=== PATIENT | female | born 1945 | race Caucasian/White ===

== ENCOUNTER 2016-08-27 20:29 | Emergency (ER) | payer MEDICARE, MEDICAID ==
[~2016-08-27] VITALS: Ht 162.6 cm; Wt 54.4 kg
--- NOTE | 2016-08-27 20:49 | NUR ---
PT BB LIBRA FROM [facility] FOR BILATERAL FLANK PAIN. PT AOX3 RR EVEN AND UNLABORED. NO SOB NOTED. NAD NOTED. NO NVD AT THIS TIME.PT NOT DIAPHORETIC. PT GOWNED AND PLACED ON MONITOR WAITING FOR MD SALCEDO.
--- NOTE | 2016-08-27 21:03 | NUR ---
DR. AGUILLON AT BEDSIDE FOR EVAL.
[2016-08-27] MEDS ORDERED: KETOROLAC TROMETHAMINE 15 MG/ML VIAL ONE (21:10)
--- NOTE | 2016-08-27 21:16 | NUR ---
PT TO CT.
[2016-08-27 21:22] LABS: CALCIUM, SERUM 8.5 mg/dL (8.5-10.1); CREATININE 0.8 mg/dL (0.6-1.3); POTASSIUM 3.7 mmol/L (3.5-5.1)
[2016-08-27] MEDS ORDERED: KETOROLAC TROMETHAMINE INJ 30 MG/ML VIAL IV ONE (21:30)
[2016-08-27 21:34] LABS: BILIRUBIN,DIRECT 0.1 mg/dL (0.0-0.2); BILIRUBIN,TOTAL 0.4 mg/dL (0.2-1.0); TOTAL PROTEIN, SERUM 6.6 g/dL (6.4-8.2)
[2016-08-27 21:38] LABS: BASOPHILS # (AUTO) 0.2 /CMM (0.0-0.2); BASOPHILS % (AUTO) 1.9 % (0.0-2.0); EOSINOPHILS # (AUTO) 0.1 /CMM (0.0-0.7); EOSINOPHILS % (AUTO) 1.2 % (0.0-6.0); HEMATOCRIT 39 % (33-45); HEMOGLOBIN 13.3 g/dL (11.5-14.8); LYMPHOCYTES # (AUTO) 1.6 /CMM (0.8-4.8); LYMPHOCYTES % (AUTO) 14.6 % (20.0-44.0); MEAN CORPUSCULAR HEMOGLOBIN 29 PG (26.0-33.0); MEAN CORPUSCULAR HGB CONC 34 g/dl (31.0-36.0); MEAN CORPUSCULAR VOLUME 86 fL (82-100); MONOCYTES % (AUTO) 9.1 % (2.0-12.0); NEUTROPHILS # (AUTO) 7.9 /CMM (1.8-8.9); NEUTROPHILS % (AUTO) 73.2 % (43.0-81.0); PLATELET COUNT (AUTO) 206 /CMM (150-450); RED BLOOD CELL COUNT(AUTO) 4.56 MIL/uL (4.0-5.2); WHITE BLOOD COUNT (AUTO) 10.8 K/uL (4.3-11.0)
--- NOTE | 2016-08-27 21:42 | NUR ---
URINE COLLECTED. CALLED LAB FOR BRAND ENGINEER.
[2016-08-27 22:06] LABS: APPEARANCE,URINE CLEAR (CLEAR); BILIRUBIN,URINE NEGATIVE (NEGATIVE); BLOOD, URINE 2+ Ery/uL (NEGATIVE); COLOR,URINE YELLOW (YELLOW); KETONES,URINE 1+ (NEGATIVE); LEUKOCYTE ESTERASE ,URINE 2+ (NEGATIVE); NITRITE, URINE NEGATIVE (NEGATIVE); PROTEIN,URINE NEGATIVE (NEGATIVE); UGLUCOSE NEGATIVE (NEGATIVE); UROBILINOGEN,URINE 0.2 EU/dL (0.2)
[2016-08-27 22:29] LABS: ADD URINE CULTURE YES; BACTERIA,URINE 1+ /HPF (None Seen); SQUAMOUS EPITHELIAL CELL,UR Moderate /HPF (None Seen); WBC,URINE 40-50 /HPF (0-3)
--- NOTE | 2016-08-27 22:42 | NUR ---
Prince tyson in [facility] - 08/27/16 at 2245 by ANGELA XRAY AT BEDSIDE
--- NOTE | 2016-08-27 22:54 | NUR ---
IV removed. Catheter intact and site benign. Pressure and 4x4 applied to site. No bleeding noted. Patient discharged to home in stable condition. Written and verbal after care instructions given. Patient verbalizes understanding of instruction. ambulatory with a steady gait. daughter to bring pt back to [facility]. risk and benefits explained x3. pt daughter aware and wants to bring pt back to snf. dr. bowen aware.
[2016-08-27 22:56] VITALS: BP 118/64
== END 2016-08-27 22:56 | disposition home or self-care (01) ==
LOC: ER 20:33
DX: M54.5 Low back pain (principal); N39.0 Urinary tract infection, site not specified; K59.00 Constipation, unspecified; E03.9 Hypothyroidism, unspecified; E78.5 Hyperlipidemia, unspecified; F03.90 Unspecified dementia, unspecified severity, without behavioral disturbance, psychotic disturbance, mood disturbance, and anxiety; K21.9 Gastro-esophageal reflux disease without esophagitis; R47.01 Aphasia; F41.9 Anxiety disorder, unspecified; F32.9 Major depressive disorder, single episode, unspecified
CPT/HCPCS: 36415; 72131-TC; 80048-TC; 80076-TC; 81000-TC; 83690-TC; 85025-TC; 87086-TC; A4606; J1885; Z7610

== ENCOUNTER 2017-12-01 17:01 | Inpatient (IN) | payer OTHER, MEDICAID ==
[~2017-12-01] VITALS: Ht 167.6 cm; Wt 71.7 kg
[2017-12-01 17:50] LABS: BASOPHILS # (AUTO) 0.1 /CMM (0.0-0.2); BASOPHILS % (AUTO) 0.8 % (0.0-2.0); EOSINOPHILS % (AUTO) 3.4 % (0.0-6.0); HEMATOCRIT 40 % (33-45); HEMOGLOBIN 13.7 g/dL (11.5-14.8); LYMPHOCYTES # (AUTO) 2.4 /CMM (0.8-4.8); LYMPHOCYTES % (AUTO) 28.7 % (20.0-44.0); MEAN CORPUSCULAR HGB CONC 34 g/dl (31.0-36.0); MEAN CORPUSCULAR VOLUME 86 fL (82-100); MONOCYTES # (AUTO) 0.5 /CMM (0.1-1.30); MONOCYTES % (AUTO) 6.5 % (2.0-12.0); NEUTROPHILS % (AUTO) 60.6 % (43.0-81.0); PLATELET COUNT (AUTO) 278 /CMM (150-450); RDW COEFFICIENT OF VARIATION 12.8 (11.5-15.0); WHITE BLOOD COUNT (AUTO) 8.3 K/uL (4.3-11.0)
--- NOTE | 2017-12-01 17:50 | NUR ---
A/OX4. STABLE CONDITION. VSS. NEG ACUTE DISTRESS. BBPA ON 6940 DTS: MEDICAL CLEARANCE FOR GPS PLACEMENT. SAFETY MEASURES IN PLACE.
[2017-12-01] MEDS ORDERED: OMEP20CA10 PO (17:57)
[2017-12-01] MEDS ORDERED: LEVO88TA5 PO (17:57)
[2017-12-01] MEDS ORDERED: ASPI-1169 PO (17:57)
[2017-12-01] MEDS ORDERED: DEXT1CAP3 PO (17:57)
[2017-12-01] MEDS ORDERED: DULO30CA2 PO (17:57)
[2017-12-01] MEDS ORDERED: POLY15DR40 EACHEYE (17:57)
[2017-12-01 18:00] LABS: CALCIUM, SERUM 9.7 mg/dL (8.5-10.1); CARBON DIOXIDE 26 mmol/L (21-32); CHLORIDE 107 mmol/L (98-107); GLUCOSE 103 mg/dL (74-106); POTASSIUM 3.9 mmol/L (3.5-5.1); SODIUM SERUM 140 mmol/L (136-145); UREA NITROGEN, BLOOD 14 mg/dL (7-18)
[2017-12-01 18:03] LABS: APPEARANCE,URINE Clear (CLEAR); BILIRUBIN,URINE SMALL (NEGATIVE); BLOOD, URINE Trace-intact Ery/uL (NEGATIVE); COLOR,URINE Yellow (YELLOW); KETONES,URINE Trace (NEGATIVE); LEUKOCYTE ESTERASE ,URINE Small (NEGATIVE); NITRITE, URINE Negative (NEGATIVE); PH,URINE 5.5 (5.0-8.0); PROTEIN,URINE 30 mg/dl (NEGATIVE); UGLUCOSE Negative (NEGATIVE); UROBILINOGEN,URINE 0.2 EU/dL (0.2)
[2017-12-01 18:06] LABS: ACETAMINOPHEN < 2 ug/ml (10-30); ALANINE AMINOTRANSFERASE 17 U/L (12-78); ALBUMIN 3.3 g/dL (3.4-5.0); ALCOHOL, BLOOD < 3 mg/dL (0-0); ALKALINE PHOSPHATASE 144 U/L (46-116); ASPARTATE AMINOTRANSFERASE 15 U/L (15-37); BILIRUBIN,DIRECT 0.1 mg/dL (0.0-0.2); BILIRUBIN,TOTAL 0.5 mg/dL (0.2-1.0); SALICYLATE 1.8 mg/dL (2.8-20.0); TOTAL PROTEIN, SERUM 6.6 g/dL (6.4-8.2)
[2017-12-01 18:20] LABS: BACTERIA,URINE 1+ /HPF (None Seen); SQUAMOUS EPITHELIAL CELL,UR Few /HPF (None Seen)
[2017-12-01] MEDS ORDERED: MAGNESIUM HYDROXIDE 30 ML UDC PO PRN (19:00)
[2017-12-01] MEDS ORDERED: LORAZEPAM 0.5 MG TABLET PO PRN (19:00)
[2017-12-01] MEDS ORDERED: MAG HYDROX/AL HYDROX/SIMETH 30 ML UDC PO PRN (19:00)
[2017-12-01] MEDS ORDERED: ACETAMINOPHEN 325 MG TABLET PO PRN (19:00)
[2017-12-01 20:00] VITALS: BP 136/85
--- NOTE | 2017-12-01 20:30 | NUR ---
GPS ADMISSION NOTE: RECEIVED PATIENT IN ROOM SITTING IN BED AT BEGINNING OF SHIFT. PATIENT IS A 72 YEAR OLD CAUCASION FEMALE, BROUGHT IN TO THE HOSPITAL BY AMBULANCE, ADMITTED ON A 5150 HOLD FOR DTS FROM [facility] ER FOR DTS. REPORTED BY RACK WASHER, PATIENT STATED SHE WANTED TO BY OVERDOSING ON HER MEDICATION. PATIENT'S SISTER HAS POA AND WAS NOTIFIED. SHE FAXED COPY AND WILL BRING IN ORIGINAL TOMORROW. FAXED COPY ON CHART. UPON ASSESSMENT ON UNIT, PATIENT ALERT AND ORIENTED X 1, CONFUSED BUT COOPERATIVE. AT THIS TIME, DENIES SHE NEEDS TO BE HERE, DENIES SI, HI, HALLUCINATIONS, PAIN. MOOD IS ANXIOUS AND DEPRESSED. AMBULATORY WITH STEADY GAIT. PATIENT CONFUSED AND ATTENTION SPAN IS DISORGANIZED. UNABLE TO ANSWER ALL QUESTIONS AND REFUSED SOME PAPERWORK. PATIENT GIVEN SANDWICH AND SNACKS. ORIENTED TO UNIT AND ROOM, CALL DIANA. BED RAILS UP X 2 IN LOW POSITION. PRN ATIVAN OFFERED FOR ANXIETY BUT PATIENT REFUSED AND FELL ASLEEP AFTER ADMISSION PROCESS. WILL CONTINUE TO MONITOR FOR SAFETY Q15 MINUTES.
[2017-12-01 21:44] VITALS: BP 134/80
[2017-12-02 07:05] LABS: ALANINE AMINOTRANSFERASE 19 U/L (12-78); ALBUMIN 2.9 g/dL (3.4-5.0); ALKALINE PHOSPHATASE 128 U/L (46-116); ASPARTATE AMINOTRANSFERASE 16 U/L (15-37); BILIRUBIN,TOTAL 0.4 mg/dL (0.2-1.0); CALCIUM, SERUM 8.8 mg/dL (8.5-10.1); CARBON DIOXIDE 22 mmol/L (21-32); CHLORIDE 110 mmol/L (98-107); CREATININE 0.8 mg/dL (0.6-1.3); GLUCOSE 101 mg/dL (74-106); POTASSIUM 3.6 mmol/L (3.5-5.1); SODIUM SERUM 144 mmol/L (136-145); TOTAL PROTEIN, SERUM 5.9 g/dL (6.4-8.2); UREA NITROGEN, BLOOD 14 mg/dL (7-18)
[2017-12-02 07:19] LABS: CHOLESTEROL 138 mg/dL (<200); HDL CHOLESTEROL 36 mg/dL (40-60); LDL 85 mg/dL (0-99); TRIGLYCERIDES 132 mg/dL (30-150)
[2017-12-02 08:16] VITALS: BP 132/62
[2017-12-02] MEDS: POLYVINYL ALCOHOL 15 ML BOTTLE EACHEYE SCH ×2 (09:00→17:34)
[2017-12-02] MEDS: PANTOPRAZOLE 40 MG TABLET.DR PO SCH (09:06)
[2017-12-02] MEDS: LEVOTHYROXINE SODIUM 88 MCG TABLET PO SCH (09:06)
[2017-12-02] MEDS: CEPHALEXIN MONOHYDRATE 500 MG CAPSULE PO SCH ×2 (09:06→22:29)
[2017-12-02] MEDS: ASPIRIN 81 MG TAB.CHEW PO SCH (09:07)
[2017-12-02 16:00] VITALS: BP 138/70
--- NOTE | 2017-12-02 16:36 | NUR ---
Initial Discharge Plan: Pt currently resides at [address] [place] [address] ([phone]) and SW is currently unsure if she lives with anyone or by herself. IVETH will work with the M[facility], the pt and the MD regarding appropriate discharge plans. IVETH will form a safe and proper discharge. Addendum: 12/02/17 at 1637 by STEVE LAZARO Humaira VELEZ ([phone])
--- NOTE | 2017-12-02 16:37 | NUR ---
SW called the pt's DPOA, Humaira Keith ([phone]), and left a message.
[2017-12-02 20:00] VITALS: BP 136/79
[2017-12-02] MEDS: TEMAZEPAM 7.5 MG CAPSULE PO PRN (22:29)
[2017-12-03 08:00] VITALS: BP 109/67
[2017-12-03] MEDS: POLYVINYL ALCOHOL 15 ML BOTTLE EACHEYE SCH ×2 (09:00→17:27)
[2017-12-03] MEDS: DULOXETINE HCL 30 MG CAPSULE.DR PO SCH (09:00)
[2017-12-03] MEDS: CEPHALEXIN MONOHYDRATE 500 MG CAPSULE PO SCH ×2 (09:00→21:24)
[2017-12-03] MEDS: LEVOTHYROXINE SODIUM 88 MCG TABLET PO SCH (09:00)
[2017-12-03] MEDS: PANTOPRAZOLE 40 MG TABLET.DR PO SCH (09:00)
[2017-12-03] MEDS: ASPIRIN 81 MG TAB.CHEW PO SCH (09:00)
[2017-12-03 16:00] VITALS: BP 136/91
--- NOTE | 2017-12-03 19:30 | NUR ---
RN NOTES RECEIVED PATIENT SITTING IN CHAIR IN HALLWAY. PATIENT AO TO SELF; ABLE TO MAKE NEEDS KNOWN; CONFUSED. AMBULATES WITH STEADY GAIT. NO ACUTE DISTRESS NOTED. DENIES ANY PAIN AT THIS TIME. DENIES ANY SUICIDAL IDEATION AT THIS TIME. SAFETY REMINDERS GIVEN. BED IN ROOM SET TO LOW WITH BILATERAL UPPER SIDE RAILS UP. CALL DIANA WITHIN EASY REACH. WILL CONTINUE TO MONITOR.
[2017-12-03 20:00] VITALS: BP 130/75
[2017-12-03] MEDS: TEMAZEPAM 7.5 MG CAPSULE PO PRN (21:24)
--- NOTE | 2017-12-04 06:22 | NUR ---
RN NOTES PATIENT ASLEEP, EASILY AROUSABLE. RESPIRATIONS EVEN. NO SIGNS OF PAIN NOTED. DUE MEDS GIVEN WITH NO ASE NOTE. NEEDS ATTENDED. KEPT CLEAN, DRY, AND COMFORTABLE. SAFETY PRECAUTIONS AND COMFORT MEASURES IN PLACE. WILL GIVE REPORT TO DAY SHIFT FOR CONTINUITY OF CARE.
[2017-12-04 08:00] VITALS: BP 114/68
[2017-12-04] MEDS: PANTOPRAZOLE 40 MG TABLET.DR PO SCH (08:51)
[2017-12-04] MEDS: DULOXETINE HCL 30 MG CAPSULE.DR PO SCH (08:52)
[2017-12-04] MEDS: POLYVINYL ALCOHOL 15 ML BOTTLE EACHEYE SCH ×2 (08:52→17:58)
[2017-12-04] MEDS: ASPIRIN 81 MG TAB.CHEW PO SCH (08:52)
[2017-12-04] MEDS: LEVOTHYROXINE SODIUM 88 MCG TABLET PO SCH (08:52)
[2017-12-04] MEDS: CEPHALEXIN MONOHYDRATE 500 MG CAPSULE PO SCH ×2 (08:52→20:43)
[2017-12-04 16:00] VITALS: BP 137/79
[2017-12-04 18:44] LABS: APPEARANCE,URINE CLEAR (CLEAR); BILIRUBIN,URINE NEGATIVE (NEGATIVE); BLOOD, URINE NEGATIVE Ery/uL (NEGATIVE); COLOR,URINE YELLOW (YELLOW); KETONES,URINE NEGATIVE (NEGATIVE); LEUKOCYTE ESTERASE ,URINE 1+ (NEGATIVE); NITRITE, URINE NEGATIVE (NEGATIVE); PROTEIN,URINE NEGATIVE (NEGATIVE); UGLUCOSE NEGATIVE (NEGATIVE); UROBILINOGEN,URINE 0.2 EU/dL (0.2)
[2017-12-04 19:08] LABS: BACTERIA,URINE Few /HPF (None Seen); MUCUS,URINE Moderate /LPF (None Seen); RBC,URINE 0-2 /HPF (0-2); SQUAMOUS EPITHELIAL CELL,UR Few /HPF (None Seen)
[2017-12-04 20:05] VITALS: BP 124/76
[2017-12-04] MEDS: TEMAZEPAM 7.5 MG CAPSULE PO PRN (22:56)
--- NOTE | 2017-12-04 22:56 | NUR ---
TEMAZEPAM 7.5 MG CAP 1 PO GIVEN FOR SLEEP.
[2017-12-05 08:30] VITALS: BP 98/54
[2017-12-05] MEDS: LEVOTHYROXINE SODIUM 88 MCG TABLET PO SCH (08:48)
[2017-12-05] MEDS: ASPIRIN 81 MG TAB.CHEW PO SCH (08:48)
[2017-12-05] MEDS: DULOXETINE HCL 30 MG CAPSULE.DR PO SCH ×2 (08:48→17:15)
[2017-12-05] MEDS: PANTOPRAZOLE 40 MG TABLET.DR PO SCH (08:48)
[2017-12-05] MEDS: CEPHALEXIN MONOHYDRATE 500 MG CAPSULE PO SCH ×2 (08:49→21:34)
[2017-12-05] MEDS: POLYVINYL ALCOHOL 15 ML BOTTLE EACHEYE SCH ×2 (08:50→17:15)
--- NOTE | 2017-12-05 12:51 | NUR ---
IVETH called the pt's insurance, [facility] [employer], and left a message with Adebayo ([phone]).
--- NOTE | 2017-12-05 12:57 | NUR ---
Discharge Note: Pt was discharged to [facility] located at [address], [place] [address] ([phone]). Pt was transported via [facility] (Trip #[id number]) at 12:30PM. Pts conservator, Aga Stewart ([phone]), was agreeable with this discharge plan and the pt was agreeable as well. Upon discharge, the pt denied suicidal and homicidal ideation as well as visual and auditory hallucinations. Pts mood and affect were calm and euthymic upon discharge. The pt will be under the care of psychiatrist, Dr. Curtis who is located at [address] [address], [place] [address]; ), and will be under the care of her ceramic engineer, Dr. Underwood who is located at [address], [place] [address]; ). Addendum: 12/05/17 at 1601 by STEVE LAZARO ERROR. WRONG PT. STEVE MAYES
[2017-12-05 16:00] VITALS: BP 128/84
--- NOTE | 2017-12-05 16:01 | NUR ---
Pt was not discharged today. Error in note.
--- NOTE | 2017-12-05 16:01 | NUR ---
W called the pt's DPOA, Humaira Keith ([phone]), and discussed the pt being discharged tomorrow to [facility].
--- NOTE | 2017-12-05 16:04 | NUR ---
SW spoke to Anatoly ([phone]) at [facility] and confirmed the discharge for the pt.
--- NOTE | 2017-12-05 16:12 | NUR ---
IVETH left a message for the person in charge of the transportation from [facility] for this pt. IVETH left a message with Whitney ([phone]).
--- NOTE | 2017-12-05 16:17 | NUR ---
IVETH called the pt's insurance, [facility] [employer], and left a message with Adebayo ([phone]).
--- NOTE | 2017-12-05 16:35 | NUR ---
IVETH faxed a review to the pt's insurance to [facility] at [phone].
[2017-12-05 20:00] VITALS: BP 126/77
--- NOTE | 2017-12-06 06:22 | NUR ---
GPS/RN PATIENT STILL SLEEPING AT THIS TIME, APPEAR COMFORTABLE, NO DISTRESS NOTED, NO BEHAVIOR PROBLEM NOTED THE WHOLE SHIFT, ALL NEEDS ATTENDED AT THIS TIME. WILL CONTINUE TO MONITOR.
[2017-12-06 08:54] VITALS: BP 156/89
[2017-12-06] MEDS: PANTOPRAZOLE 40 MG TABLET.DR PO SCH (09:08)
[2017-12-06] MEDS: LEVOTHYROXINE SODIUM 88 MCG TABLET PO SCH (09:08)
[2017-12-06] MEDS: ASPIRIN 81 MG TAB.CHEW PO SCH (09:08)
[2017-12-06] MEDS: CEPHALEXIN MONOHYDRATE 500 MG CAPSULE PO SCH (09:08)
[2017-12-06] MEDS: DULOXETINE HCL 30 MG CAPSULE.DR PO SCH (09:08)
[2017-12-06] MEDS: POLYVINYL ALCOHOL 15 ML BOTTLE EACHEYE SCH (10:13)
--- NOTE | 2017-12-06 10:13 | NUR ---
SW spoke to the [facility] ([phone]) and they arranged the pt's transport via [facility] (authorization #[id number]) at 11:15 am.
--- NOTE | 2017-12-06 10:14 | NUR ---
IVETH spoke to Gris ([phone]) at [facility] and confirmed that the pt will return to her place of residence.
--- NOTE | 2017-12-06 12:35 | NUR ---
GPS/RN-NOTES PATIENT WAS DISCHARGE TO THE [facility] TODAY. DR. ESCUDERO AND FURNACE UNLOADER FRANCISCO AWARE AND AGREES OF PATIENT DISCHARGE WITH ORDERS. PATIENT DID NOT VERBALIZE SI/HI/DENIES VISUAL/AUDITORY HALLUCINATIONS AT THE TIME OF DISCHARGE. PATIENT SISTER ALSO ROSIE DUARTE ) CALL AND LEFT A MSG VIA VOICE MAIL REGARDING THE DISCHARGE. PATIENT WAS GREASE MAKER HEAD BY AMBULANCE VIA [facility] WITH TWO STAFF ASSIST. PATIENT LEFT THE UNIT IN STABLE CONDITION ALERT ORIENTED X3 AMBULATORY WITH STEADY GAIT WITH ALL HER BELONGINGS . ALL DISCHARGE POCKET WAS GIVEN TO THE AMBULANCE STAFF INCLUDING THE PRESCRIPTIONS AND PATIENT OWN MEDICATIONS.
--- NOTE | 2017-12-06 12:35 | NUR ---
Discharge Note: Pt was discharged to [facility] (assisted living) located on [address] [place] [address]; ([phone]). Pt was transported via [facility] (authorization #[id number]) at 11:15am which was arranged by the [facility]. Pt was anxious and excited to be discharged and was calm and cooperative upon discharge. Pt denied suicidal and homicidal ideation as well as visual and auditory hallucinations. Pt will be under the care of her psychiatrist, Dr. Gonsalez, who is located on [address] [place] [address], [place] [address]; ) and her publication director, Dr. Vaishnavi Montes De Oca, who is located at [address] [place] [address]; ).
== END 2017-12-06 12:35 | DRG 885 ==
LOC: ER 17:02 → GPS 18:51
PROVIDERS: ADMIT Psychiatry & Neurology Psychosomatic Medicine; ATTEND Psychiatry & Neurology Psychosomatic Medicine
DX: F33.2 Major depressive disorder, recurrent severe without psychotic features (principal); N39.0 Urinary tract infection, site not specified; R47.01 Aphasia; R45.851 Suicidal ideations; F29 Unspecified psychosis not due to a substance or known physiological condition; F03.90 Unspecified dementia, unspecified severity, without behavioral disturbance, psychotic disturbance, mood disturbance, and anxiety; K21.9 Gastro-esophageal reflux disease without esophagitis; F41.9 Anxiety disorder, unspecified; E78.5 Hyperlipidemia, unspecified; E03.9 Hypothyroidism, unspecified; Z90.710 Acquired absence of both cervix and uterus; Z79.82 Long term (current) use of aspirin; Z79.899 Other long term (current) drug therapy; F48.2 Pseudobulbar affect
CPT/HCPCS: 36415; 80048-TC; 80053-TC; 80061-TC; 80076-TC; 80305; 81000-TC; 84443-TC; 85025-TC; 87086-TC; A4606; G0480; Z7610

== ENCOUNTER 2019-01-20 13:52 | Inpatient (IN) | payer OTHER, MEDICAID ==
[~2019-01-20] VITALS: Ht 167.6 cm; Wt 77.6 kg
[~2019-01-20 13:52] MED LIST: ASPI-1169 PO; DEXT1CAP3 PO; DULO30CA2 PO; LEVO88TA5 PO; OMEP20CA11 PO; POLY15DR40 EACHEYE
[2019-01-20] MEDS ORDERED: IV NS 0.9% 1,000 ML BAG IV ONE (14:30)
[2019-01-20 14:38] LABS: BASOPHILS # (AUTO) 0.1 /CMM (0.0-0.2); EOSINOPHILS % (AUTO) 2.8 % (0.0-6.0); HEMATOCRIT 43 % (33-45); HEMOGLOBIN 14.6 g/dL (11.5-14.8); LYMPHOCYTES # (AUTO) 2.2 /CMM (0.8-4.8); LYMPHOCYTES % (AUTO) 25.9 % (20.0-44.0); MEAN CORPUSCULAR HGB CONC 34 g/dl (31.0-36.0); MEAN CORPUSCULAR VOLUME 91 fL (82-100); MONOCYTES # (AUTO) 0.6 /CMM (0.1-1.30); MONOCYTES % (AUTO) 6.6 % (2.0-12.0); NEUTROPHILS # (AUTO) 5.5 /CMM (1.8-8.9); NEUTROPHILS % (AUTO) 63.7 % (43.0-81.0); PLATELET COUNT (AUTO) 303 /CMM (150-450); RED BLOOD CELL COUNT(AUTO) 4.72 MIL/uL (4.0-5.2); WHITE BLOOD COUNT (AUTO) 8.7 K/uL (4.3-11.0)
[2019-01-20 14:46] LABS: CALCIUM, SERUM 9.2 mg/dL (8.5-10.1); CARBON DIOXIDE 27 mmol/L (21-32); CHLORIDE 107 mmol/L (98-107); CREATININE 1.1 mg/dL (0.6-1.3); GLUCOSE 106 mg/dL (74-106); SODIUM SERUM 144 mmol/L (136-145); UREA NITROGEN, BLOOD 14 mg/dL (7-18)
[2019-01-20 14:51] LABS: ALANINE AMINOTRANSFERASE 29 U/L (12-78); ALBUMIN 3.3 g/dL (3.4-5.0); ALKALINE PHOSPHATASE 153 U/L (46-116); ASPARTATE AMINOTRANSFERASE 26 U/L (15-37); BILIRUBIN,DIRECT 0.1 mg/dL (0.0-0.2); BILIRUBIN,TOTAL 0.5 mg/dL (0.2-1.0); LIPASE 214 U/L (73-393); TOTAL PROTEIN, SERUM 7.1 g/dL (6.4-8.2)
[2019-01-20 14:56] LABS: APPEARANCE,URINE Clear (CLEAR); BILIRUBIN,URINE SMALL (NEGATIVE); BLOOD, URINE Negative Ery/uL (NEGATIVE); COLOR,URINE Yellow (YELLOW); KETONES,URINE Trace (NEGATIVE); LEUKOCYTE ESTERASE ,URINE Trace (NEGATIVE); NITRITE, URINE Negative (NEGATIVE); PH,URINE 5.5 (5.0-8.0); PROTEIN,URINE Negative (NEGATIVE); UGLUCOSE Negative (NEGATIVE); UROBILINOGEN,URINE 0.2 EU/dL (0.2)
[2019-01-20 15:09] LABS: BACTERIA,URINE Few /HPF (None Seen); RBC,URINE NONE SEEN /HPF (0-2); SQUAMOUS EPITHELIAL CELL,UR Few /HPF (None Seen)
[2019-01-20] MEDS: CEFTRIAXONE 1GM BAG (ER ONLY) 1 GM/50 ML PIGGYBACK IV ONE ×2 (16:09→16:34)
[2019-01-20] MEDS ORDERED: CEFTRIAXONE 1 G in IV NS 0.9% 50 ML IV ONE (16:30)
[2019-01-20] MEDS ORDERED: LEVO75TA7 PO (16:44)
[2019-01-20] MEDS ORDERED: RANI150T8 PO (16:44)
[2019-01-20] MEDS ORDERED: MEMA10TA PO (16:44)
[2019-01-20] MEDS ORDERED: BENA20TA9 PO (16:44)
[2019-01-20] MEDS ORDERED: SODI88SP18 BNOSTRILS (16:44)
[2019-01-20] MEDS ORDERED: ASPI-1169 PO (16:44)
[2019-01-20] MEDS ORDERED: ATOR10TA PO (16:44)
[2019-01-20] MEDS ORDERED: DULO30CA2 PO (16:44)
[2019-01-20 17:00] VITALS: BP 125/78
[2019-01-20] MEDS ORDERED: MELA3TAB PO (17:23)
[2019-01-20 20:00] VITALS: BP 121/70
[2019-01-20] MEDS ORDERED: IV D5/ 0.9% NACL 1,000 ML IV ONE (20:30)
[2019-01-20] MEDS ORDERED: IV D5/ 0.9% NACL 1,000 ML IV PRN (21:00)
[2019-01-20] MEDS: ATORVASTATIN 10 MG TABLET PO SCH (21:22)
[2019-01-21] VITALS: BP 127/70
[2019-01-21 04:00] VITALS: BP 128/68
[2019-01-21] MEDS: LEVOTHYROXINE SODIUM 75 MCG TABLET PO SCH (06:47)
[2019-01-21 06:50] LABS: CARBON DIOXIDE 24 mmol/L (21-32); CHLORIDE 113 mmol/L (98-107); CREATININE 0.9 mg/dL (0.6-1.3); GLUCOSE 96 mg/dL (74-106); POTASSIUM 3.7 mmol/L (3.5-5.1); SODIUM SERUM 146 mmol/L (136-145); UREA NITROGEN, BLOOD 13 mg/dL (7-18)
[2019-01-21] MEDS ORDERED: LEVOTHYROXINE SODIUM 75 MCG TABLET PO SCH (07:58)
[2019-01-21 08:00] VITALS: BP 134/68
[2019-01-21] MEDS ORDERED: SALINE NASAL SPRAY 0.65% 1 BOTTLE BOTTLE NS PRN (08:00)
[2019-01-21] MEDS ORDERED: FAMOTIDINE (20 MG) 20 MG TABLET PO PRN (08:00)
[2019-01-21] MEDS: MEMANTINE HCL 5 MG TABLET PO SCH ×2 (08:37→17:30)
[2019-01-21] MEDS: DULOXETINE HCL 30 MG CAPSULE.DR PO SCH ×2 (08:38→17:30)
[2019-01-21] MEDS: ASPIRIN 81 MG TAB.CHEW PO SCH (08:38)
[2019-01-21] MEDS: BENAZEPRIL HCL 10 MG TABLET PO SCH (08:38)
[2019-01-21 08:54] LABS: BASOPHILS % (AUTO) 0.8 % (0.0-2.0); EOSINOPHILS % (AUTO) 4.4 % (0.0-6.0); HEMATOCRIT 39 % (33-45); HEMOGLOBIN 13.1 g/dL (11.5-14.8); LYMPHOCYTES # (AUTO) 2.2 /CMM (0.8-4.8); LYMPHOCYTES % (AUTO) 35.9 % (20.0-44.0); MEAN CORPUSCULAR HGB CONC 34 g/dl (31.0-36.0); MEAN CORPUSCULAR VOLUME 90 fL (82-100); MONOCYTES # (AUTO) 0.5 /CMM (0.1-1.30); MONOCYTES % (AUTO) 7.8 % (2.0-12.0); NEUTROPHILS # (AUTO) 3.1 /CMM (1.8-8.9); NEUTROPHILS % (AUTO) 51.1 % (43.0-81.0); PLATELET COUNT (AUTO) 223 /CMM (150-450); RED BLOOD CELL COUNT(AUTO) 4.32 MIL/uL (4.0-5.2)
[2019-01-21] MEDS: CEFTRIAXONE 1 G in IV D5W 50 ML IV SCH (14:18)
[2019-01-21 16:00] VITALS: BP 111/56
[2019-01-21 20:17] VITALS: BP 144/69
[2019-01-21] MEDS ORDERED: Medication Not On Formulary EA (Melatonin 3 MG) PO SCH (22:00)
[2019-01-21] MEDS ORDERED: ATORVASTATIN 10 MG TABLET PO SCH (22:00)
[2019-01-21] MEDS: ATORVASTATIN 10 MG TABLET PO SCH (22:37)
[2019-01-22 06:18] LABS: CALCIUM, SERUM 8.6 mg/dL (8.5-10.1); CARBON DIOXIDE 24 mmol/L (21-32); CHLORIDE 111 mmol/L (98-107); GLUCOSE 94 mg/dL (74-106); MAGNESIUM 1.9 mg/dL (1.8-2.4); PHOSPHORUS 3.7 mg/dL (2.5-4.9); POTASSIUM 3.8 mmol/L (3.5-5.1); SODIUM SERUM 145 mmol/L (136-145); UREA NITROGEN, BLOOD 13 mg/dL (7-18)
[2019-01-22 06:23] LABS: BASOPHILS # (AUTO) 0.1 /CMM (0.0-0.2); BASOPHILS % (AUTO) 1.1 % (0.0-2.0); EOSINOPHILS % (AUTO) 5.5 % (0.0-6.0); HEMATOCRIT 37 % (33-45); HEMOGLOBIN 12.7 g/dL (11.5-14.8); LYMPHOCYTES % (AUTO) 36.6 % (20.0-44.0); MEAN CORPUSCULAR HGB CONC 34 g/dl (31.0-36.0); MEAN CORPUSCULAR VOLUME 90 fL (82-100); MONOCYTES # (AUTO) 0.4 /CMM (0.1-1.30); MONOCYTES % (AUTO) 8.1 % (2.0-12.0); NEUTROPHILS # (AUTO) 2.7 /CMM (1.8-8.9); NEUTROPHILS % (AUTO) 48.7 % (43.0-81.0); PLATELET COUNT (AUTO) 202 /CMM (150-450); RED BLOOD CELL COUNT(AUTO) 4.16 MIL/uL (4.0-5.2); WHITE BLOOD COUNT (AUTO) 5.5 K/uL (4.3-11.0)
[2019-01-22 08:00] VITALS: BP_SYST 129; BP_SYST 150; BP_DIAS 69; BP_DIAS 86
[2019-01-22] MEDS: DULOXETINE HCL 30 MG CAPSULE.DR PO SCH (08:17)
[2019-01-22 08:18] VITALS: BP 129/69
[2019-01-22] MEDS: ASPIRIN 81 MG TAB.CHEW PO SCH (08:18)
[2019-01-22] MEDS: BENAZEPRIL HCL 10 MG TABLET PO SCH (08:18)
[2019-01-22] MEDS: MEMANTINE HCL 5 MG TABLET PO SCH (08:18)
[2019-01-22] MEDS: LEVOTHYROXINE SODIUM 75 MCG TABLET PO SCH (08:18)
[2019-01-22] MEDS: CEFTRIAXONE 1 G in IV D5W 50 ML IV SCH (15:49)
== END 2019-01-22 16:05 | DRG 689 ==
LOC: ER 13:52 → TELE 16:51 → MED 01-21 11:20
PROVIDERS: ADMIT Internal Medicine Nephrology; ATTEND Internal Medicine Nephrology
DX: N39.0 Urinary tract infection, site not specified (principal); G92 Toxic encephalopathy; G45.9 Transient cerebral ischemic attack, unspecified; R47.01 Aphasia; E87.0 Hyperosmolality and hypernatremia; K21.9 Gastro-esophageal reflux disease without esophagitis; E78.5 Hyperlipidemia, unspecified; E03.9 Hypothyroidism, unspecified; F03.90 Unspecified dementia, unspecified severity, without behavioral disturbance, psychotic disturbance, mood disturbance, and anxiety; Z90.710 Acquired absence of both cervix and uterus; Z86.73 Personal history of transient ischemic attack (TIA), and cerebral infarction without residual deficits; Z79.899 Other long term (current) drug therapy; Z79.82 Long term (current) use of aspirin; E86.0 Dehydration
CPT/HCPCS: 36415; 70450-TC; 71045-TC; 80048-TC; 80076-TC; 81000-TC; 83690-TC; 83735-TC; 84100-TC; 84484-TC; 85025-TC; 87081-TC; 87086-TC; 97116-TC; 97530-TC; A4216; G0378; J0696; J7030; J7042; J7060

== ENCOUNTER 2021-04-24 17:18 | Emergency (ER) | payer OTHER ==
[~2021-04-24] VITALS: Ht 170.2 cm; Wt 72.6 kg
[~2021-04-24 17:18] MED LIST changes: +ATOR10TA PO; +BENA20TA9 PO; -DEXT1CAP3 PO; +LEVO75TA7 PO; -LEVO88TA5 PO; +MELA3TAB41 PO; +MEMA10TA PO; -OMEP20CA11 PO; -POLY15DR40 EACHEYE; +RANI150T8 PO; +SODI88SP18 BNOSTRILS
--- NOTE | 2021-04-24 17:50 | NUR ---
TO ER BED 9, [id number] FRM [place], PER EMS "HEADACHE" X 4 DAYS PER CAREGIVER. AAOX3, BREATHING EVEN AND NON LABORED, CONNECTED TO MONITOR
[2021-04-24] MEDS ORDERED: ACETAMINOPHEN ES 500 MG TABLET PO ONE (18:30)
[2021-04-24 18:57] LABS: HEMATOCRIT 41 % (33-45); HEMOGLOBIN 13.7 g/dL (11.5-14.8); MEAN CORPUSCULAR HGB CONC 33 g/dl (31.0-36.0); MEAN CORPUSCULAR VOLUME 92 fL (82-100); PLATELET COUNT (AUTO) 266 K/uL (150-450); RED BLOOD CELL COUNT(AUTO) 4.51 MIL/uL (4.0-5.2); WHITE BLOOD COUNT (AUTO) 8.1 K/uL (4.3-11.0)
--- NOTE | 2021-04-24 19:05 | NUR ---
rec'd report from alice ling for megha
[2021-04-24] MEDS ORDERED: ACETAMINOPHEN ES 500 MG TABLET ONE (19:06)
[2021-04-24 19:07] LABS: BILIRUBIN,URINE NEGATIVE (NEGATIVE); COLOR,URINE YELLOW (YELLOW); LEUKOCYTE ESTERASE ,URINE LARGE (NEGATIVE); NITRITE, URINE NEGATIVE (NEGATIVE); PROTEIN,URINE NEGATIVE (NEGATIVE); UGLUCOSE NEGATIVE (NEGATIVE); UROBILINOGEN,URINE 0.2 EU/dL (0.2)
[2021-04-24 19:12] LABS: CALCIUM, SERUM 8.5 mg/dL (8.5-10.1); CARBON DIOXIDE 24 mmol/L (21-32); CHLORIDE 108 mmol/L (98-107); CREATININE 0.9 mg/dL (0.6-1.3); GLUCOSE 102 mg/dL (74-106); SODIUM SERUM 142 mmol/L (136-145); UREA NITROGEN, BLOOD 15 mg/dL (7-18)
[2021-04-24 19:17] LABS: ALCOHOL, BLOOD < 3 mg/dL (0-0)
[2021-04-24 19:18] LABS: ACETAMINOPHEN < 10 ug/ml (10-30)
[2021-04-24 19:26] LABS: THYROID STIMULATING HORMONE 1.456 uIU/mL (0.358-3.74)
[2021-04-24 19:58] LABS: BACTERIA,URINE 1+ /HPF (None Seen); SQUAMOUS EPITHELIAL CELL,UR 0-2 /HPF (None Seen); WBC,URINE 21-50 /HPF (0-3)
--- NOTE | 2021-04-24 20:00 | NUR ---
Patient is resting comfortably in bed with eyes closed. Easily aroused. VSS
[2021-04-24 20:03] LABS: BAND % (MANUAL) 1 % (0.0-5.0); EOSINOPHILS % (MANUAL) 2 % (0-4); LYMPHOCYTES % (MANUAL) 30 % (16-48); MONOCYTES % (MANUAL) 7 % (0-11.0); NEUTROPHILS % (MANUAL) 60 (42-76)
--- NOTE | 2021-04-24 21:00 | NUR ---
pt sitting watching tv, attached to monitor and pox, vss
--- NOTE | 2021-04-24 22:00 | NUR ---
Patient is resting comfortably in bed with eyes closed. Easily aroused. VSS
--- NOTE | 2021-04-24 23:18 | NUR ---
pt sleeping, attached to monitor and pox, vss
--- NOTE | 2021-04-25 00:30 | NUR ---
romulo holland, eta 1 hour
--- NOTE | 2021-04-25 01:15 | NUR ---
Patient is resting comfortably in bed with eyes closed. Easily aroused. VSS
--- NOTE | 2021-04-25 02:16 | NUR ---
PT SLEEPING, ATTACHED TO MONITOR AND POX. VSS
--- NOTE | 2021-04-25 04:48 | NUR ---
ETA FOR TRANSPORT HOME [facility]IA [facility] WILL BE BETWEEN 8AM AND 9AM.
[2021-04-25] MEDS ORDERED: LORAZEPAM 1 MG TABLET PO ONE (05:00)
--- NOTE | 2021-04-25 05:40 | NUR ---
PT SLEEPING, ATTACHED TO MONITOR AND POX, VSS
--- NOTE | 2021-04-25 06:35 | NUR ---
Patient is resting comfortably in bed with eyes closed. Easily aroused. VSS
--- NOTE | 2021-04-25 07:42 | NUR ---
THE PATIENT IS RECEIVED IN ER BED #9. ALERT AND ORIENTED X3. DENIES PAIN. IN ROOM AIR AND DENIES SOB. RESPIRATION REGULAR AND UNLABORED. WILL CONTINUE TO MONITOR THE PATIENT.
--- NOTE | 2021-04-25 09:25 | NUR ---
Patient discharged in stable condition. Written and verbal after care instructions given. Patient verbalizes understanding of instruction. The patient is picked up by ambulance.
[2021-04-25 09:26] VITALS: BP 95/62
== END 2021-04-25 09:26 | disposition home or self-care (01) ==
LOC: ER 17:26
DX: F32.9 Major depressive disorder, single episode, unspecified (principal); R51.9 Headache, unspecified; F41.1 Generalized anxiety disorder; E78.5 Hyperlipidemia, unspecified; E03.9 Hypothyroidism, unspecified; F39 Unspecified mood [affective] disorder; F03.90 Unspecified dementia, unspecified severity, without behavioral disturbance, psychotic disturbance, mood disturbance, and anxiety; K21.9 Gastro-esophageal reflux disease without esophagitis; Z90.710 Acquired absence of both cervix and uterus; Z79.82 Long term (current) use of aspirin; Z79.899 Other long term (current) drug therapy
CPT/HCPCS: 36415; 70450-TC; 80048-TC; 81001; 84439-TC; 84443-TC; 85025-TC; 87086-TC; G0480

== ENCOUNTER 2023-10-04 16:07 | Inpatient (IN) | payer MEDICARE, OTHER ==
[~2023-10-04] VITALS: Ht 165.1 cm; Wt 93.4 kg
[2023-10-04] MEDS ORDERED: SENN-170 PO (17:27)
[2023-10-04] MEDS ORDERED: ARIP5TAB10 PO (17:27)
[2023-10-04] MEDS ORDERED: QUET25TA PO (17:27)
[2023-10-04] MEDS ORDERED: DICL100G26 TP (17:27)
[2023-10-04] MEDS ORDERED: ASPI-1420 PO (17:27)
[2023-10-04] MEDS ORDERED: LEVO88TA5 PO (17:27)
[2023-10-04] MEDS ORDERED: FEXO-63 PO (17:27)
[2023-10-04] MEDS ORDERED: PANT40TA2 PO (17:27)
[2023-10-04] MEDS ORDERED: ESCI20TA PO (17:27)
[2023-10-04] MEDS ORDERED: LORA-258 PO (17:27)
[2023-10-04] MEDS ORDERED: CHOL200059 PO (17:27)
[2023-10-04] MEDS ORDERED: CYCL10TA9 PO (17:27)
[2023-10-04] MEDS ORDERED: ONDA8TAB13 SL (17:27)
[2023-10-04] MEDS ORDERED: CYAN500T9 PO (17:27)
[2023-10-04] MEDS ORDERED: DOCU240C26 PO (17:27)
[2023-10-04 17:47] LABS: BASOPHILS # (AUTO) 0.1 K/uL (0.0-0.2); BASOPHILS % (AUTO) 1.3 % (0.0-2.0); EOSINOPHILS # (AUTO) 0.4 K/uL (0.0-0.7); EOSINOPHILS % (AUTO) 5.6 % (0.0-6.0); HEMATOCRIT 38 % (33-45); HEMOGLOBIN 12.6 g/dL (11.5-14.8); LYMPHOCYTES # (AUTO) 1.9 K/uL (0.8-4.8); LYMPHOCYTES % (AUTO) 28.3 % (20.0-44.0); MEAN CORPUSCULAR HEMOGLOBIN 29 PG (26.0-33.0); MEAN CORPUSCULAR HGB CONC 33 g/dl (31.0-36.0); MEAN CORPUSCULAR VOLUME 88 fL (82-100); MONOCYTES # (AUTO) 0.6 K/uL (0.1-1.30); MONOCYTES % (AUTO) 8.6 % (2.0-12.0); NEUTROPHILS # (AUTO) 3.8 K/uL (1.8-8.9); NEUTROPHILS % (AUTO) 56.2 % (43.0-81.0); PLATELET COUNT (AUTO) 235 K/uL (150-450); RED BLOOD CELL COUNT(AUTO) 4.33 MIL/uL (4.0-5.2); RED CELL DISTRIBUTION WIDTH 16.1 % (11.5-15.0); WHITE BLOOD COUNT (AUTO) 6.8 K/uL (4.3-11.0)
[2023-10-04 17:56] LABS: CALCIUM, SERUM 8.7 mg/dL (8.5-10.1); CARBON DIOXIDE 27 mmol/L (21-32); CHLORIDE 106 mmol/L (98-107); GLUCOSE 87 mg/dL (74-106); SODIUM SERUM 138 mmol/L (136-145); UREA NITROGEN, BLOOD 14 mg/dL (7-18)
[2023-10-04 18:14] LABS: ALANINE AMINOTRANSFERASE 19 U/L (12-78); ALBUMIN 3.2 g/dL (3.4-5.0); ALCOHOL, BLOOD < 3 mg/dL (0-10); ALKALINE PHOSPHATASE 118 U/L (46-116); ASPARTATE AMINOTRANSFERASE 17 U/L (15-37); BILIRUBIN,DIRECT 0.1 mg/dL (0.0-0.2); BILIRUBIN,TOTAL 0.4 mg/dL (0.2-1.0); TOTAL PROTEIN, SERUM 6.3 g/dL (6.4-8.2)
[2023-10-04 18:15] LABS: SALICYLATE 1.5 mg/dL (2.8-20.0)
[2023-10-04 18:16] LABS: ACETAMINOPHEN < 2 ug/ml (10-30)
[2023-10-04 18:27] LABS: BILIRUBIN,URINE Negative (NEGATIVE); BLOOD, URINE Negative Ery/uL (NEGATIVE); COLOR,URINE YELLOW (YELLOW); KETONES,URINE Negative (NEGATIVE); LEUKOCYTE ESTERASE ,URINE Small (NEGATIVE); NITRITE, URINE Negative (NEGATIVE); PROTEIN,URINE Negative (NEGATIVE); UGLUCOSE Negative (NEGATIVE); UROBILINOGEN,URINE 0.2 EU/dL (0.2)
[2023-10-04 18:56] LABS: AMPHETAMINE, URINE NEGATIVE (NEGATIVE); APPEARANCE,URINE SH534928 (CLEAR); BARBITURATE, URINE NEGATIVE (NEGATIVE); BENZODIAZEPINE, URINE NEGATIVE (NEGATIVE); CANNABINOID, URINE NEGATIVE (NEGATIVE); COCCAINE, URINE NEGATIVE (NEGATIVE); OPIATE, URINE NEGATIVE (NEGATIVE); PHENCYCLIDINE SCREEN,URINE NEGATIVE (NEGATIVE)
[2023-10-04 18:58] LABS: ADD URINE CULTURE YES; BACTERIA,URINE Moderate /HPF (None Seen); SQUAMOUS EPITHELIAL CELL,UR Few /HPF (None Seen); WBC,URINE TOO NUMEROUS TO COUN /HPF (0-3)
[2023-10-04 20:45] VITALS: BP 141/79; TEMP 98.9; O2SAT 96
[2023-10-04] MEDS ORDERED: MAGNESIUM HYDROXIDE 30 ML UDC PO PRN (21:00)
[2023-10-04] MEDS ORDERED: MAG HYDROX/AL HYDROX/SIMETH 30 ML UDC PO PRN (21:00)
[2023-10-04] MEDS: BLOOD SUGAR DIAGNOSTIC 1 EACH STRIP IN ONE (21:00)
[2023-10-04] MEDS ORDERED: ZOLPIDEM TARTRATE 5 MG TABLET PO PRN (21:00)
[2023-10-04] MEDS: CEPHALEXIN MONOHYDRATE 500 MG CAPSULE PO SCH (23:21)
[2023-10-05 08:00] VITALS: BP 118/65; TEMP 98.1; O2SAT 98
[2023-10-05] MEDS: LEVOTHYROXINE SODIUM 88 MCG TABLET PO SCH (08:00)
[2023-10-05] MEDS: SENNOSIDES/DOCUSATE SODIUM 1 TAB TABLET PO SCH (08:04)
[2023-10-05] MEDS: MEMANTINE HCL 5 MG TABLET PO SCH (08:05)
[2023-10-05] MEDS: BENAZEPRIL HCL 20 MG TABLET PO SCH (08:09)
[2023-10-05] MEDS: ASPIRIN EC 81 MG TABLET.DR PO SCH (08:10)
[2023-10-05] MEDS: cetrizine 10 MG TABLET PO SCH (08:10)
[2023-10-05] MEDS: QUETIAPINE FUMARATE 25 MG TABLET PO SCH (08:10)
[2023-10-05 08:33] LABS: CHOLESTEROL 150 mg/dL (<200); HDL CHOLESTEROL 47 mg/dL (40-60); LDL 78 mg/dL (0-99); TRIGLYCERIDES 133 mg/dL (30-150)
[2023-10-05] MEDS ORDERED: FEXOFENADINE HCL (60 MG) 60 MG TABLET PO SCH (09:00)
[2023-10-05 11:30] LABS: CREATININE 1.1 mg/dL (0.6-1.3)
[2023-10-05] MEDS: ESCITALOPRAM OXALATE (10 MG) 10 MG TABLET PO SCH (12:12)
[2023-10-05 16:00] VITALS: BP 109/96; TEMP 98.7; O2SAT 98
[2023-10-05] MEDS: ATORVASTATIN 10 MG TABLET PO SCH (21:18)
[2023-10-06 08:00] VITALS: BP 150/96; TEMP 97.8; O2SAT 96
[2023-10-06 13:14] LABS: THYROID STIMULATING HORMONE 14.524 uIU/mL (0.358-3.74)
[2023-10-06 16:00] VITALS: BP 135/84; TEMP 97.6; O2SAT 97
[2023-10-06 20:00] VITALS: BP 132/80; TEMP 97.9; O2SAT 98
[2023-10-07] MEDS: LORAZEPAM 0.5 MG TABLET PO PRN (05:33)
[2023-10-07 08:00] VITALS: BP 149/87; TEMP 98.9; O2SAT 96
[2023-10-07] MEDS: LEVOTHYROXINE SODIUM 88 MCG TABLET PO SCH (08:28)
[2023-10-07 12:10] LABS: FOLIC ACID 9.3 ng/mL (>3.0)
[2023-10-07 16:00] VITALS: BP 149/82; TEMP 98; O2SAT 98
[2023-10-08 08:00] VITALS: BP 153/95; TEMP 98.6; O2SAT 97
[2023-10-08 16:00] VITALS: BP 158/76; TEMP 98.2; O2SAT 96
[2023-10-09 08:00] VITALS: BP 144/68; TEMP 98.1; O2SAT 91
[2023-10-09 16:00] VITALS: BP 136/70; TEMP 98.2; O2SAT 98
[2023-10-09 20:47] VITALS: BP 97/68; TEMP 98; O2SAT 96
[2023-10-10 08:00] VITALS: BP 148/93; TEMP 98.7; O2SAT 99
[2023-10-10] MEDS: ACETAMINOPHEN 325 MG TABLET PO PRN (08:04)
[2023-10-10 16:00] VITALS: BP 137/80; TEMP 97.9; O2SAT 98
[2023-10-10 20:20] VITALS: BP 132/63; TEMP 98.2; O2SAT 97
[2023-10-11 08:00] VITALS: BP 133/73; TEMP 98; O2SAT 98
[2023-10-11] MEDS: ESCITALOPRAM OXALATE (10 MG) 10 MG TABLET PO SCH (08:47)
[2023-10-11] MEDS: LEVOTHYROXINE SODIUM 100 MCG TABLET PO SCH (09:07)
[2023-10-11 16:00] VITALS: BP 136/83; TEMP 97.7; O2SAT 97
[2023-10-11 21:11] VITALS: BP 133/85; TEMP 98.2; O2SAT 95
[2023-10-12] MEDS ORDERED: LEVOTHYROXINE SODIUM 100 MCG TABLET PO SCH (07:30)
[2023-10-12 08:00] VITALS: BP 120/72; TEMP 98.7; O2SAT 98
[2023-10-12 08:23] LABS: CALCIUM, SERUM 8.7 mg/dL (8.5-10.1); CREATININE 1.1 mg/dL (0.6-1.3); POTASSIUM 4.2 mmol/L (3.5-5.1)
[2023-10-12 08:41] VITALS: BP 120/68
== END 2023-10-12 15:30 | DRG 885 ==
LOC: ER 16:09 → GPS 19:55
PROVIDERS: ADMIT Psychiatry & Neurology Psychiatry; ATTEND Nurse Practitioner Acute Care
DX: F33.3 Major depressive disorder, recurrent, severe with psychotic symptoms (principal); G93.41 Metabolic encephalopathy; N39.0 Urinary tract infection, site not specified; F03.93 Unspecified dementia, unspecified severity, with mood disturbance; F03.94 Unspecified dementia, unspecified severity, with anxiety; R47.01 Aphasia; F29 Unspecified psychosis not due to a substance or known physiological condition; E78.5 Hyperlipidemia, unspecified; Z86.73 Personal history of transient ischemic attack (TIA), and cerebral infarction without residual deficits; K21.9 Gastro-esophageal reflux disease without esophagitis; Z90.710 Acquired absence of both cervix and uterus; Z91.040 Latex allergy status; Z79.890 Hormone replacement therapy; Z79.82 Long term (current) use of aspirin; Z79.899 Other long term (current) drug therapy; I10 Essential (primary) hypertension; M19.90 Unspecified osteoarthritis, unspecified site; E03.9 Hypothyroidism, unspecified; B96.89 Other specified bacterial agents as the cause of diseases classified elsewhere; F41.9 Anxiety disorder, unspecified; F39 Unspecified mood [affective] disorder; I73.9 Peripheral vascular disease, unspecified; Z91.51 Personal history of suicidal behavior
CPT/HCPCS: 36415; 70450-TC; 80048-TC; 80061-TC; 80076-TC; 81001; 82565-TC; 82607-TC; 82962-TC; 83921; 84439-TC; 84443-TC; 85025-TC; 87081-TC; 87086-TC; G0480